=== PATIENT | male | born 1945 | race Caucasian/White ===

== ENCOUNTER → 2016-07-12 | Outpatient (CLI) | payer BC ==
[~2016-07-12] MED LIST: ASPI-611 PO; CARV3.1232 PO; CYCL-208 PO; DIPH25CA65 PO; FLUTICASONE SPRAY; GUAI600T42 PO; HYDR-1343 PO; HYDR25SU RC; OXYM15MI5; TELM1TAB12 PO; VARD20TA PO; ZOLP-107 PO; [UNRECOGNIZED DRUG - CODE] PO; [UNRECOGNIZED DRUG - CODE] TP
== END ==
LOC: NWCC 09:49
PROVIDERS: ATTEND Internal Medicine
DX: L97.422 Non-pressure chronic ulcer of left heel and midfoot with fat layer exposed (principal); L84 Corns and callosities; G90.09 Other idiopathic peripheral autonomic neuropathy; I10 Essential (primary) hypertension; I25.10 Atherosclerotic heart disease of native coronary artery without angina pectoris; B15.9 Hepatitis A without hepatic coma; E78.5 Hyperlipidemia, unspecified; C61 Malignant neoplasm of prostate; Z82.49 Family history of ischemic heart disease and other diseases of the circulatory system; Z80.9 Family history of malignant neoplasm, unspecified; Z82.3 Family history of stroke; Z83.3 Family history of diabetes mellitus; Z84.89 Family history of other specified conditions; R60.1 Generalized edema; B35.1 Tinea unguium; B96.89 Other specified bacterial agents as the cause of diseases classified elsewhere
CPT/HCPCS: 11042; 87070; 87075; 87076; 87077; 87181; 87186; 87205; 99213; A6021; A6209